=== PATIENT | female | born 2000 | race Caucasian/White ===

== ENCOUNTER 2021-12-15 20:30 | Emergency (ER) | payer MEDICAID, SELFPAY ==
[2021-12-15 20:31] VITALS: BP 137/78; PULSE 89; RESP 14; TEMP 36.1; O2SAT 96; BMI 41.2
[2021-12-15] MEDS: Ondansetron ODT 4 MG Tablet PO (21:10)
--- NOTE | 2021-12-15 21:40 | EX.ED.DYSGE1 ---
HPI History of Present Illness Chief Complaint: Nausea/Vomiting Informant: patient Onset/Context/Timing Onset: Days Current Severity: Moderate Worsened by: Eating and drinking Relieved by: Nothing Associated Symptoms Associated Symptoms: Nausea, vomiting, diarrhea, hot flashes, upper abdominal pain Narrative Narrative: Patient was recently diagnosed with strep pharyngitis in an outside hospital. She was prescribed antibiotics, codeine, and a steroid pack. She completed her medications but her symptoms are worse. She is having nausea, vomiting, diarrhea, hot flashes, upper abdominal pain. Prior similar symptoms: No PFSH PFSH Medical History no medical history Home Medications ondansetron 4 mg PO Q8H PRN PRN #20 tab 12/15/21 [Rx Last Taken Unknown] Allergy/AdvReac Type Severity Reaction Status Date / Time No Known Allergies Allergy Verified 12/15/21 20:31 Social History Smoking Status: Never smoker ROS ROS ED Constitutional Constitutional ED: Reports fever(s) and subjective Eyes Eyes: Denies change in vision ENT ENT ED: Denies ear pain Cardiovascular Cardiovascular: Denies chest pain Respiratory/Chest Respiratory/Chest: Denies dyspnea Gastrointestinal Gastrointestinal: Reports abdominal pain, diarrhea, nausea and vomiting Genitourinary Genitourinary ED: Denies dysuria Musculoskeletal Musculoskeletal: Denies myalgias Integumentary Denies rash Neurologic Neurologic: Denies headache(s) Psychiatric Psychiatric: Denies depression Endocrine Endocrinology: Denies polyuria Allergic/Immunologic Allergic/Immunologic ED: Denies urticaria EXAM Physical Exam Const Vital Signs: 12/15/21 20:31 Temperature 97 F L Temperature Source Temporal Pulse Rate 89 Respiratory Rate 14 Blood Pressure 137/78 H Blood Pressure Mean 97 Pulse Ox 96 Oxygen Delivery Method Room Air Positive well nourished and well developed General Appearance ED: well developed HEENT Negative for trauma or tenderness Eyes EOMs intact bilaterally Neck supple Resp normal respiratory effort and clear to auscultation bilaterally Cardio regular rate and regular rhythm GI normal to inspection, nondistended, normoactive bowel sounds, non-tender and non-distended Palpation: soft Extremity normal to inspection Neuro oriented x3 Sensorium / Orientation: alert Psych mental status grossly normal Skin no rashes or lesions noted MDM MDM MDM Narrative Medical decision making narrative: Patient initially appeared well. She had reassuring vital signs and exam. I thought this might be related to the recent medications she was on her that maybe she had a viral syndrome. She was treated with Zofran and appeared well. We attempted a PO challenge and she was having continued nausea and retching. Unable to tolerate anything by mouth. At this time, I will have nursing place an IV and administer fluids and IV Zofran. We will check some basic labs and COVID/influenza test. Will check the results and reassess with another p.o. challenge. She will be signed out to the oncoming physician to check. Disposition is pending. Impression #1 nausea, vomiting, and diarrhea Discharge Plan Triage Chief Complaint: Nausea/Vomiting Other Complaint: Abd Pain ED Provider: Cachorro Rascon Dx/Rx/DC Orders Instructions: ED Gastroenteritis, Viral (Adult) Prescriptions: New ondansetron 4 mg tablet,disintegrating 4 mg PO Q8H PRN PRN (Reason: Nausea) Qty: 20 RF: 0 Primary Care Provider: Care Physician,No Primary Referrals: Care Physician,No Primary [Primary Care Provider] -
[2021-12-15] MEDS: 0.9% Normal Saline 1,000 ML 1000 ML IV (22:00)
[2021-12-15] MEDS: Ondansetron 4 MG/2 ML Vial IV (22:00)
[2021-12-15 22:12] LABS: Absolute Lymphocyte Count 4.87 X10^3/uL (0.83-4.51); Absolute Neutrophil Count 11.2 X10^3/uL (2.0-7.7); Basophil# 0.09 X10^3/uL; Basophil% 0.5 % (0-1); Eosinophil# 0.25 X10^3/uL; Eosinophils% 1.4 % (0-5); Hematocrit 43.2 % (37-47); Hemoglobin 14.4 g/dL (12.0-15.0); Lymphocyte # 4.87 X10^3/ul (0.83-4.51); Lymphocyte % 27.7 % (19-41); Mean Corp Hgb Conc 33.3 g/dL (32-36); Mean Corpuscular Volume 83.9 fL (81-99); Mean Platelet Vol. 10.2 fl (6.2-12.0); Monocyte# 0.95 X10^3/uL; Monocyte% 5.4 % (0-10); NRBC Flagged by Analyzer 0 % (0-5); Neutrophil # 11.21 X10^3/uL (2.7-7.7); Neutrophil % 63.7 % (47-70); POSITIVE MORPHOLOGY YES; Platelet Count 362 K/mm3 (150-450); RBC Distribution Width CV 12.8 % (11.6-14.6); RBC Distribution Width SD 38.9 fl (35.1-43.9); Red Blood Count 5.15 M/mm3 (4.2-5.4); White Blood Count 17.6 K/mm3 (4.4-11.0)
[2021-12-15 22:14] LABS: Differential Indicated SCAN CRITERIA MET
[2021-12-15 22:29] LABS: Internal QC Validated? YES +Cl - CLEAR BKGD; Pregnancy, Serum, hCG Quali. NEGATIVE Negative
[2021-12-15 22:32] LABS: ALB/GLOB Ratio 0.9 RATIO (0.9-2.4); AST(SGOT) 108 U/L (15-37); Alanine Aminotransfer ALT/SGPT 110 U/L (13-56); Alkaline Phosphatase 83 U/L (45-117); Anion Gap 6 (5-15); BUN 18 mg/dL (7-18); BUN/Creat Ratio 20.5 RATIO (10-20); Calcium,Total 9.4 mg/dL (8.5-10.1); Chloride 100 mmol/L (98-107); Creatinine, Serum 0.88 mg/dL (0.55-1.02); EST Glomerular Filtration Rate 87 mL/min (>60); Est Glom Filt Rate - Afr Amer 106 mL/min (>60); Estimated Creatinine Clearance 84.36 ml/min; Globulin 4.4 g/dL (2.2-4.2); Glucose 98 mg/dL (74-106); Lipase 131 U/L (73-393); Potassium 3.7 mmol/L (3.5-5.1); Protein, Total 8.4 g/dL (6.4-8.2); Sodium Level 136 mmol/L (136-145)
--- NOTE | 2021-12-15 22:37 | CT_ITS ---
STUDY: CT ABDOMEN AND PELVIS WITH CONTRAST REASON FOR EXAM: Female, 21 years old. upper abd pain, elevated lfts RADIATION DOSAGE (If Supplied By Facility): CTDIvol = ( 17.07 ) mGy, DLP = ( 1279.34 ) mGycm TECHNIQUE: Transaxial images were obtained from the dome of the diaphragm to the symphysis pubis without oral contrast. IV 100mL Isovue-370 was administered. Sagittal and coronal images were reconstructed. Individualized dose optimization techniques were used for this CT. COMPARISON: None. FINDINGS: LOWER CHEST: Normal. LIVER: The liver is enlarged with the right hepatic lobe midclavicular line measuring 18.7 cm. GALLBLADDER/BILE DUCTS: Normal. PANCREAS: Normal. SPLEEN: Normal. ADRENAL GLANDS: Normal. KIDNEYS/URETERS/BLADDER: Normal. RETROPERITONEUM/AORTA: Normal. BOWEL/MESENTERY: Mild wall thickening in the distal colon which is decompressed, limiting evaluation. No bowel dilatation or bowel wall thickening.. APPENDIX: Identified and normal. PERITONEUM: Normal. REPRODUCTIVE ORGANS: Tampon in place within the vagina. BONES/SOFT TISSUES: No acute abnormality. OTHER: Trace free fluid in the pelvis. CT/Abdomen/Pelvis W IV Cont ONLY IMPRESSION: 1. Hepatomegaly. 2. Mild wall thickening in the distal colon, most likely due to decompression however early/mild colitis is not excluded. 3. Trace free fluid in the pelvis. Electronically Signed: Fahad William MD at 23:12 EDT ,
[2021-12-15 22:45] VITALS: BP 120/70; PULSE 82; RESP 16; O2SAT 98
[2021-12-15 22:50] LABS: Differential Comment SCANNED
[2021-12-15 22:51] LABS: Platelet Estimate ADEQUATE (ADEQ); Red Cell Morphology NORM C+C NORMAL (NORM C&C)
[2021-12-15 23:25] LABS: Internal QC Validated? YES +Cl - CLEAR BKGD; Monotest Negative (Negative)
[2021-12-16 00:19] LABS: Bacteria 0 SEEN /hpf (None Seen); Mucous, Urine 0 SEEN /hpf (<or=2+); White Blood Cells 0 SEEN /hpf (0-5)
[2021-12-16 00:23] LABS: Color, Urine Yellow (Yellow); Glucose, Dipstick Normal (Normal); Ketone-Dipstick Negative (Negative); Leukocyte Esterase-Dipstick Negative /ul (Negative); Nitrite-Dipstick Negative (Negative); Occult Blood-Urine 25 /ul (Negative); Protein-Dipstick Negative (Negative); Urine Bilirubin Dipstick Negative (Negative); Urine Clarity Clear (Clear); Urine Urobilinogen Normal (Normal); Urine pH 6.5 (5.0 - 8.0)
[2021-12-16 00:43] LABS: Red Blood Cells-Urine 0-5 SEEN /hpf (0-5); Squamous Epithelial Cells - UA 0-5 SEEN /hpf (5-10)
[2021-12-16 01:11] VITALS: BP 120/74; PULSE 74; RESP 17; O2SAT 98
[2021-12-18 09:31] LABS: Pathologist Review Reviewed
== END 2021-12-16 01:13 | disposition home or self-care (01) ==
PROVIDERS: Emergency Medicine; Emergency Provider Emergency Medicine; Visit Provider Emergency Medicine
DX: R11.2 Nausea with vomiting, unspecified (principal); R19.7 Diarrhea, unspecified; R10.10 Upper abdominal pain, unspecified
CPT/HCPCS: 74177; 80053; 81001; 83690; 84703; 85025; 86308; 87428; 96361; 96374; 99283; J7030; J2405

== ENCOUNTER → 2021-12-21 | Outpatient (CLI) | payer MEDICAID, SELFPAY ==
[2021-12-21 12:29] LABS: Absolute Lymphocyte Count 3.25 X10^3/uL (0.83-4.51); Absolute Neutrophil Count 6.6 X10^3/uL (2.0-7.7); Basophil# 0.08 X10^3/uL; Basophil% 0.7 % (0-1); Eosinophil# 0.29 X10^3/uL; Eosinophils% 2.6 % (0-5); Hematocrit 40.4 % (37-47); Hemoglobin 13.4 g/dL (12.0-15.0); Lymphocyte # 3.25 X10^3/ul (0.83-4.51); Lymphocyte % 29.3 % (19-41); Mean Corp Hgb Conc 33.2 g/dL (32-36); Mean Corpuscular Hgb 27.6 pg (27.0-32.0); Mean Corpuscular Volume 83.1 fL (81-99); Mean Platelet Vol. 10.4 fl (6.2-12.0); Monocyte# 0.73 X10^3/uL; Monocyte% 6.6 % (0-10); NRBC Flagged by Analyzer 0 % (0-5); Neutrophil # 6.64 X10^3/uL (2.7-7.7); Neutrophil % 59.8 % (47-70); Platelet Count 278 K/mm3 (150-450); RBC Distribution Width CV 12.7 % (11.6-14.6); RBC Distribution Width SD 38.4 fl (35.1-43.9); Red Blood Count 4.86 M/mm3 (4.2-5.4); White Blood Count 11.1 K/mm3 (4.4-11.0)
[2021-12-21 12:41] LABS: ALB/GLOB Ratio 0.9 RATIO (0.9-2.4); AST(SGOT) 53 U/L (15-37); Alanine Aminotransfer ALT/SGPT 82 U/L (13-56); Albumin, Serum 3.7 g/dL (3.2-5.0); Alkaline Phosphatase 71 U/L (45-117); Anion Gap 9 (5-15); BUN 12 mg/dL (7-18); BUN/Creat Ratio 12.7 RATIO (10-20); Calcium,Total 9.3 mg/dL (8.5-10.1); Chloride 102 mmol/L (98-107); Cholesterol 195 mg/dL (200); Creatinine, Serum 0.94 mg/dL (0.55-1.02); EST Glomerular Filtration Rate 80 mL/min (>60); Est Glom Filt Rate - Afr Amer 97 mL/min (>60); Glucose 136 mg/dL (74-106); High Density Lipoprotein 34 mg/dL; Protein, Total 7.7 g/dL (6.4-8.2); Sodium Level 137 mmol/L (136-145); Triglycerides 320 mg/dL; Very Low Density Lipoprotein 64 mg/dL (5-40)
[2021-12-21 13:52] LABS: Hemoglobin A1c 6.2 % (3.8-5.6)
[2021-12-24 16:08] LABS: HEPATITIS B SURFACE AG Negative (Negative); Hep C Antibodies <0.1 s/co ratio (0.0-0.9); Hepatitis A IgM Antibody Negative (Negative); Hepatitis B Core AB IgM Negative (Negative)
[2021-12-24 16:53] LABS: Lamotrigine (Lamictal) Level < 1.0 ug/mL (2.0-20.0)
== END | disposition home or self-care (01) ==
LOC: BIMLAB 10:19
PROVIDERS: Referring Provider Internal Medicine; Visit Provider Internal Medicine
DX: E03.9 Hypothyroidism, unspecified (principal); F25.9 Schizoaffective disorder, unspecified; E04.9 Nontoxic goiter, unspecified; N92.6 Irregular menstruation, unspecified; F51.04 Psychophysiologic insomnia; F41.9 Anxiety disorder, unspecified; F32.A Depression, unspecified; F43.10 Post-traumatic stress disorder, unspecified
CPT/HCPCS: 36415; 80053; 80061; 80074; 82542; 83036; 84443; 85025

== ENCOUNTER → 2021-12-28 | Outpatient (CLI) | payer MEDICAID, SELFPAY ==
--- NOTE | 2021-12-28 16:55 | US_ITS ---
EXAM: US SOFT TISSUES HEAD AND NECK, THYROID CLINICAL INDICATION: enlarged thyroid TECHNIQUE: Grayscale and color doppler imaging was performed of the thyroid gland. This report was created using [employer] report [employer] technology. COMPARISON: None. FINDINGS: LEFT THYROID LOBE: The left lobe of thyroid measures 5.1 x 1.7 x 1.4 cm. Homogeneous echotexture with normal vascularity. No thyroid nodules are present. RIGHT THYROID LOBE: The right lobe of the thyroid measures 5.5 x 2.4 x 1.5 cm. In the upper pole the right lobe of the thyroid there is a spongiform nodule measuring 1.5 x 1.1 x 0.6 cm. Homogeneous echotexture with normal vascularity. ISTHMUS: The isthmus measures 4 mm. OTHER FINDINGS: TI-RADS points: 0. TI-RADS category: TR1. This nodule is benign and no FNA or follow-up is necessary. US/Thyroid IMPRESSION: Normal-sized thyroid without acute findings. Benign spongiform nodule upper pole right lobe of the thyroid. Electronically Signed: Rick Anthony MD at 5:48 EDT ,
== END | disposition home or self-care (01) ==
LOC: US 16:51
PROVIDERS: PCP Internal Medicine; Visit Provider Internal Medicine
DX: E04.9 Nontoxic goiter, unspecified (principal); E03.9 Hypothyroidism, unspecified
CPT/HCPCS: 76536